=== PATIENT | female | born 1990 | race Caucasian/White ===

== ENCOUNTER 2024-05-30 23:06 | Inpatient (IN) | payer BC, OTHER ==
[2024-05-31] MEDS ORDERED: Ondansetron 4 MG/2 ML SDV IVPUSH PRN (01:50)
[2024-05-31] MEDS ORDERED: Calcium Carbonate 500 MG Tab.Chew PO PRN (01:50)
[2024-05-31] MEDS ORDERED: Nalbuphine 10 MG/1 ML Vial IVPUSH PRN (01:50)
[2024-05-31] MEDS ORDERED: Lidocaine 1% 50 ML MDV INJECT PRN (01:50)
[2024-05-31] MEDS ORDERED: Sodium Chloride 0.9% 10 ML Syringe FLUSH PRN (01:50)
[2024-05-31] MEDS ORDERED: Oxytocin/0.9 % Sodium Chloride 30 UNIT/500 ML BAG IV SCH (02:00)
[2024-05-31 02:07] LABS: BASOPHILS PERCENT AUTO 0.2 % (0.0-1.0); EOSINOPHILS ABSOLUTE AUTO 0.1 K/mm3 (0.0-0.4); EOSINOPHILS PERCENT AUTO 0.5 % (0.0-6.0); HEMATOCRIT 32.8 % (37.0-47.0); IMMATURE GRAN ABSOLUTE AUTO 0.07 K/mm3 (0.00-0.05); IMMATURE GRAN PERCENT AUTO 0.5 % (0.0-0.4); LYMPHOCYTES PERCENT AUTO 13.5 % (24.0-44.0); MEAN CORPUSCULAR HEMOGLOBIN 28.6 pg (28.0-32.0); MEAN CORPUSCULAR HGB CONC 33.5 g/dl (32.0-36.0); MEAN CORPUSCULAR VOLUME 85.4 fl (83.0-99.0); MONOCYTES ABSOLUTE AUTO 0.9 K/mm3 (0.0-0.8); MONOCYTES PERCENT AUTO 6.4 % (0.0-8.0); NEUTROPHILS ABSOLUTE AUTO 11.5 K/mm3 (1.8-7.7); NEUTROPHILS PERCENT AUTO 78.9 % (41.0-71.0); PLATELET COUNT,PLT 272 K/mm3 (150-400); RED BLOOD CELL COUNT 3.84 M/mm3 (4.10-5.30); WHITE BLOOD CELL COUNT,WBC 14.56 K/mm3 (3.9-11.3)
[2024-05-31] MEDS: Lactated Ringers 1,000 ML IV SCH (02:10)
[2024-05-31] MEDS ORDERED: diphenhydrAMINE 50 MG/ML SDV IVPUSH PRN (02:21)
[2024-05-31] MEDS: Bupivacaine/fentaNYL/NS 100 ML Bag EPIDUR PRN (02:28)
[2024-05-31] MEDS: ePHEDrine 50 MG/ML SDV IVPUSH PRN (03:03)
[2024-05-31] MEDS ORDERED: Sodium Chloride 0.9% 10 ML Syringe FLUSH SCH (09:00)
[2024-05-31 09:15] LABS: HEPATITIS C AB NON-REACTIVE (Non-React)
[2024-05-31] MEDS: Oxytocin/0.9 % Sodium Chloride 30 UNIT/500 ML BAG IV SCH (14:07)
[2024-05-31 14:08] LABS: C. TRACHOMATIS BY PCR NOT DETECTED; N. GONORRHOEAE BY PCR NOT DETECTED
[2024-05-31] MEDS ORDERED: Acetaminophen 325 MG Tab PO PRN (14:33)
[2024-05-31] MEDS: Ibuprofen 800 MG Tab PO SCH ×2 (16:02→16:03)
[2024-05-31] MEDS: Benzocaine/Menthol 20%-0.5% Spray 78 GM Cannister TOP PRN (17:21)
[2024-05-31] MEDS: Witch Hazel Medicated Pads 40/Jar TOP PRN (17:21)
[2024-06-01] MEDS: Docusate Sodium 100 MG Cap PO PRN (09:17)
== END 2024-06-01 16:20 | disposition home or self-care (01) | DRG 560 ==
LOC: JD.OBCHECK 23:06 → JD.OB 23:14 → JD.OBCHECK 23:14 → JD.OB 23:14 → JD.OBCHECK 23:15 → JD.OB 23:15 → OBSVTOIN 05-31 14:07 → JD.OB 05-31 14:08
PROVIDERS: ADMIT Obstetrics & Gynecology; ATTEND Obstetrics & Gynecology
PROC: 10E0XZZ Delivery of Products of Conception, External Approach (ICD-10-PCS; principal; 2024-05-31)
PROC: 10907ZC Drainage of Amniotic Fluid, Therapeutic from Products of Conception, Via Natural or Artificial Opening (ICD-10-PCS; principal; 2024-05-31)
PROC: 3E0R3BZ Introduction of Anesthetic Agent into Spinal Canal, Percutaneous Approach (ICD-10-PCS; principal; 2024-05-31)
DX: O48.0 Post-term pregnancy (principal); O34.211 Maternal care for low transverse scar from previous cesarean delivery; O99.02 Anemia complicating childbirth; Z3A.40 40 weeks gestation of pregnancy; Z37.0 Single live birth; Z79.899 Other long term (current) drug therapy
CPT/HCPCS: 36415; 51701; 59025; 59409; 85025; 86592; 86803; 86850; 86900; 86901; 87491; 87591; A9270-GY; C1758; J3490; J7120; J7999